=== PATIENT | male | born 1985 | race Caucasian/White ===

== ENCOUNTER 2018-01-05 13:07 | Emergency (ER) | payer OTHER ==
[2018-01-05 14:07] VITALS: BP 140/94
--- NOTE | 2018-01-05 15:00 | ED ---
Headache - HPI Summary HPI Summary: has had headache, sore throat, abdominal pain diarrhea , for the last several days. no vomiting, no fever or chills. no dysuria. no hx. of recent antibiotic use, no trips out of the country, no raw or undercooked foods - History Of Current Complaint Chief Complaint: UCAbdominalPain Stated Complaint: ABD PAIN MUSCLE ACHES HEADACHE Hx Obtained From: Patient Onset/Duration: Gradual Onset, Started days ago Timing: Intermittent, Lasting:, Hours Character: Dull Location of Headache: Diffuse Aggravating Factor: Nothing Allevating Factors: Nothing Associated Signs And Symptoms: Negative - Allergies/Home Medications Allergies/Adverse Reactions: Allergies Allergy/AdvReac Type Severity Reaction Status Date / Time No Known Allergies Allergy Verified 01/05/18 14:07 Home Medications: Home Medications Aspirin/Acetaminophen/Caffeine [Excedrin Migraine Caplet] 1 each PO 01/05/18 [ History] D-Methorphan/PE/Acetaminophen [Multi Symptom Flu & Sever 20-10-500 mg] 1 pow PO 01/05/18 [History] PMH/Surg Hx/FS Hx/Imm Hx Previously Healthy: Yes Endocrine/Hematology History: Denies: Hx Diabetes, Hx Thyroid Disease Cardiovascular History: Denies: Hx Hypertension - hypertension in the past , normal BP recently Respiratory History: Denies: Hx Asthma, Hx Chronic Obstructive Pulmonary Disease (COPD) GI History: Denies: Hx Ulcer Infectious Disease History: No Infectious Disease History: Denies: Hx Clostridium Difficile, Hx Hepatitis, Hx Human Immunodeficiency Virus (HIV), Hx of Known/Suspected MRSA, Hx Shingles, Hx Tuberculosis, History Other Infectious Disease, Traveled Outside the [place] in Last 30 Days - Family History Family History: NON CONTRIBUTORY - Social History Alcohol Use: None Substance Use Type: Reports: None Smoking Status (MU): Former Smoker Type: Cigars Amount Used/How Often: weekly Review of Systems Eyes: Negative ENT: Negative Cardiovascular: Negative Respiratory: Negative Gastrointestinal: Other Positive: Abdominal Pain, Diarrhea Genitourinary: Negative Positive: Myalgia Skin: Negative Neurological: Negative Psychological: Normal All Other Systems Reviewed And Are Negative: Yes Physical Exam Triage Information Reviewed: Yes Vital Signs On Initial Exam: Initial Vitals Temp Pulse Resp BP Pulse Ox 36.6 C 83 18 140/94 98 01/05/18 14:04 01/05/18 14:04 01/05/18 14:04 10/09/18 14:04 01/05/18 14:04 Vital Signs Reviewed: Yes Appearance: Positive: Well-Appearing Skin: Positive: Warm, Dry Head/Face: Positive: Normal Head/Face Inspection ENT: Positive: Tonsillar swelling Neck: Positive: Supple Respiratory/Lung Sounds: Positive: Clear to Auscultation Cardiovascular: Positive: Normal Abdomen Description: Positive: Other: - mild right lower quadrant pain , no rebound, no rigidity Musculoskeletal: Positive: Normal Neurological: Positive: Normal Diagnostics - Vital Signs Vital Signs Temp Pulse Resp BP Pulse Ox 01/05/18 14:04 36.6 C 83 18 140/94 98 - Laboratory Lab Statement: Any lab studies that have been ordered have been reviewed, and results considered in the medical decision making process. Headache Course/Dx - Diagnoses Provider Diagnoses: Diarrhea Discharge - Sign-Out/Discharge Documenting (check all that apply): Patient Departure All imaging exams completed and their final reports reviewed: No Studies - Discharge Plan Condition: Good Disposition: HOME Patient Education Materials: Gastroenteritis (ED) Referrals: No Primary Care Phys,NOPCP [Primary Care Provider] - - Billing Disposition and Condition Condition: GOOD Disposition: Home
[2018-01-05 18:48] LABS: ABS Basophils 0 10^3/ul (0-0.2); ABS Eosinophils 0.1 10^3/ul (0-0.6); ABS Lymphocytes 1.3 10^3/ul (1.0-4.8); ABS Monocytes 0.5 10^3/ul (0-0.8); ABS Neutrophils 3.7 10^3/ul (1.5-7.7); ABS Nucleated RBC 0 10^3/ul; Eosinophil % 1.7 % (0-6); Hematocrit 46 % (42-52); Hemoglobin 15.8 g/dl (14.0-18.0); Lymphocyte % 22.9 % (25-47); Mean Corpuscular HGB Conc 35 g/dl (31-36); Mean Corpuscular Hemoglobin 30 pg (27-31); Mean Corpuscular Volume 87 fL (80-94); Nucleated Red Blood Cells % 0.1; Platelet Count 263 10^3/ul (150-450); Red Blood Count 5.25 10^6/ul (4.00-5.40); Red Cell Distribution Width 13 % (10.5-15); White Blood Count 5.6 10^3/ul (3.5-10.8)
== END 2018-01-05 15:56 | disposition home or self-care (01) ==
LOC: UCEAST 13:07
DX: R19.7 Diarrhea, unspecified (principal); R10.31 Right lower quadrant pain; M79.10 Myalgia, unspecified site; R51 Headache; Z87.891 Personal history of nicotine dependence
CPT/HCPCS: 36415; 85025; 87651; 99211; G0463